=== PATIENT | male | born 1980 | race Two or more races ===

== ENCOUNTER 2017-02-16 15:15 | Emergency (ER) | payer OTHER ==
[~2017-02-16] VITALS: Ht 188 cm; Wt 99.8 kg
[2017-02-16 15:24] VITALS: BP 118/86
--- NOTE | 2017-02-16 15:34 | NUR ---
PT IS MEDICALLY CLEARED BY RADHA WASHINGTON. DICHARGED PT TO LAUREL PIZANO. PT LEFT IN STABLE CONDITION
== END 2017-02-16 15:35 ==
LOC: ER 15:20
DX: S20.412A Abrasion of left back wall of thorax, initial encounter (principal); W18.40XA Slipping, tripping and stumbling without falling, unspecified, initial encounter; Y93.89 Activity, other specified; Y92.89 Other specified places as the place of occurrence of the external cause; Y99.8 Other external cause status
CPT/HCPCS: A4606; Z7610